=== PATIENT | female | born 1945 | race Caucasian/White ===

== ENCOUNTER 2017-11-18 18:20 | Emergency (ER) | payer MEDICARE, OTHER ==
[~2017-11-18] VITALS: Ht 165.1 cm; Wt 85.5 kg
[~2017-11-18 18:20] MED LIST: CEPH500C3 PO; HYDR12.56 PO; LORT5TAB PO; PROT40TA PO
[2017-11-18 18:42] VITALS: BP 145/69; PULSE 70; RESP 18; TEMP 98.8; O2SAT 98
[2017-11-18] MEDS ORDERED: ANAS1TAB PO (18:55)
[2017-11-18] MEDS ORDERED: ASPI-516 CHEW (18:55)
[2017-11-18] MEDS ORDERED: IMIT25TA PO (18:55)
[2017-11-18] MEDS ORDERED: CYAN100025 IM (18:55)
[2017-11-18] MEDS ORDERED: BETH10TA2 PO (18:55)
[2017-11-18] MEDS ORDERED: TETANUS/DIPHTHERIA TOXOID ADULT 0.5 ML VIAL IM ONE (19:00)
--- NOTE | 2017-11-18 19:21 | PD ---
HPI Chief Complaint: Fall Time Seen by Provider: 18:55 Travel History International Travel<30 days: No Contact w/Intl Traveler<30days: No Traveled to known affect area: No History of Present Illness HPI 71-year-old female presents emergency department evaluation of laceration over the left brow. Says that she tripped and fell hitting her head against the wall just prior to arrival. She denies loss of consciousness, blurred vision, headache. She denies neck or back pain. Says he has laceration over the left brow, bleeding controlled. She has no other complaints today. She does not take any blood thinners. She has a history of breast cancer and takes anastrozole. PFSH Past Medical History Hx Anticoagulant Therapy: Yes (ASA) Cancer: Yes High Cholesterol: Yes Chemotherapy: Yes (PAST) Diminished Hearing: No GERD: Yes Hypertension: Yes Tetanus Vaccination: > 5 Years Influenza Vaccination: Yes ?: Not Menopausal: Yes Past Surgical History Other Surgery: Yes (LEFT BREAST LUMPECTOMY) Social History Alcohol Use: No Tobacco Use: No (IN HIGH SCHOOL) Substance Use: No Allergies-Medications (Allergen,Severity, Reaction): Coded Allergies: No Known Allergies (Verified Adverse Reaction, Unknown, 11/18/17) Reported Meds & Prescriptions Reported Meds & Active Scripts Active Reported B-12 (Cyanocobalamin) 1,000 Mcg Subl 1 Ml IM WEEKLY Aspirin 81 Mg Chew 81 Mg CHEW DAILY Imitrex (Sumatriptan Succinate) 25 Mg Tab 25 Mg PO ONCE PRN If a satisfactory response has not been obtained at 2 hours, a second dose may be administered Bethanechol 10 Mg Tab 10 Mg PO Q8HR Anastrozole 1 Mg Tab 1 Mg PO DAILY Review of Systems Except as stated in HPI: all other systems reviewed are Neg Physical Exam Narrative GENERAL: Well-nourished, well-developed patient, in NAD SKIN: Focused skin assessment warm/dry. No rashes or lesions. HEAD: Normocephalic. Left brow-edema noted over the left brow with a small 3 mm laceration/ crush wound. EYES: No scleral icterus. No injection or drainage. PERRLA, EOMI THROAT: No pharyngeal injection, exudates, or tonsillar hypertrophy. Airway is patent. NECK: Supple, trachea midline. No JVD or lymphadenopathy. No meningismus. No midline tenderness CARDIOVASCULAR: Regular rate and rhythm without murmurs, gallops, or rubs. RESPIRATORY: Breath sounds equal bilaterally. No accessory muscle use. No wheezes, rales, or rhonchi MUSCULOSKELETAL: No cyanosis, or edema. BACK: No CVA tenderness. No rash. No point tenderness on palpation of the spine. Data Data Last Documented VS Vital Signs Date Time Temp Pulse Resp B/P (MAP) Pulse Ox O2 Delivery O2 Flow Rate FiO2 11/18/17 18:51 Room Air 11/18/17 18:42 98.8 70 18 145/69 (94) 98 Orders Orders Tetanus/Diphtheria Tox Adult (Tetanus/Di (11/18/17 19:00) Ct Brain W/O Iv Contrast(Rout) (11/18/17 ) Ct Cerv Spine W/O Contrast (11/18/17 ) Ct Facial Bones W/O Iv Cont (11/18/17 ) Wound Care (11/18/17 20:39) Ed Discharge Order (11/18/17 20:40) MDM Medical Decision Making Medical Screen Exam Complete: Yes Emergency Medical Condition: Yes Differential Diagnosis Left brow laceration, avulsion, abrasion Narrative Course 71-year-old female presents emergency department evaluation of laceration over the left brow. Says that she tripped and fell hitting her head against the wall just prior to arrival. She denies loss of consciousness, blurred vision, headache. She denies neck or back pain. Says he has laceration over the left brow, bleeding controlled. She has no other complaints today. She does not take any blood thinners. She has a history of breast cancer and takes anastrozole. Vital signs are stable. Present exam findings demonstrate a laceration above the left brow. No other focal deficits or findings today. I discussed obtaining images of the face, brain, neck based off of the injury to the forehead. She agreed. Laceration repair completed. Wound care. Last Impressions Maxillofacial CT 11/18/17 0000 Signed Impressions: Service Date/Time: Saturday, November 18, 2017 19:18 - CONCLUSION: 1. Left frontal soft tissue swelling. No fracture or radiopaque foreign body. Apolinar Pappas Jr., MD Head CT 11/18/17 0000 Signed Impressions: Service Date/Time: Saturday, November 18, 2017 19:18 - CONCLUSION: 1. See the CT of the facial bones reported separately. 2. Lucent lesions scattered throughout the calvaria worrisome for ostial metastases. An outpatient followup nuclear medicine bone scan would be beneficial to further evaluate. 3. No acute intracranial abnormality. Apolinar Pappas Jr., MD Cervical Spine CT 11/18/17 0000 Signed Impressions: Service Date/Time: Saturday, November 18, 2017 19:18 - CONCLUSION: 1. No lytic lesions observed. 2. No fracture or dislocation. 3. Multilevel degenerative changes as detailed above. 4. Carotid artery atherosclerotic calcifications. 5. Right thyroid nodule. Apolinar Pappas Jr., MD I discussed the findings of the CT with the patients. Advised that she should follow-up with a primary care physician and oncologist for further treatment and evaluation [place]. Advised her to follow-up regarding the thyroid nodule as well. She states understanding will comply. Advised to return for worsening or persistent symptoms. Procedures Procedure Narrative LACERATION LOCATION: Left brow LENGTH: 5 mm NUMBER OF STITCHES/FARIDA: 3 5-0 Prolene REPAIR: The area of the laceration was prepped with Betadine and sterilely draped. The laceration was infiltrated with 1% lidocaine without epinephrine. The wound was copiously irrigated and explored without evidence of foreign body, tendon injury or neurovascular injury. The wound was closed using 5-0 Prolene. This was a single layer repair. A sterile dressing was applied. The patient was advised to keep the dressing clean and dry. Patient tolerated the procedure well. Diagnosis Primary Impression: Forehead laceration Qualified Codes: S01.81XA - Laceration without foreign body of other part of head, initial encounter Additional Impression: Head contusion Qualified Codes: S00.12XA - Contusion of left eyelid and periocular area, initial encounter Referrals: Primary Care Physician Additional Instructions: Follow up with your primary care physician within 2-3 days. Keep area clean and dry for 24 hours. After 24 hours, you may bathe as normal but dry the area thoroughly. You may use [id number] triple antibiotic ointments for your injury daily. Change dressings daily. If bleeding starts, apply pressure and elevate the area. If you developed increased redness, swelling, or pain return to the emergency department as this could be a sign of infection. Suture removal in 5 days. Disposition: 01 DISCHARGE HOME Condition: Stable Keira Gloria November 18, 2017 19:21
--- NOTE | 2017-11-18 19:55 | RADRPT ---
EXAM DATE/TIME: 11/18/2017 19:18 [facility] COMPARISON: No previous studies available for comparison. INDICATIONS : Trauma. Fall. Laceration left frontal region. RADIATION DOSE: 51.14 CTDIvol (mGy) MEDICAL HISTORY : Hypertension. Carcinoma, breast. SURGICAL HISTORY : None. ENCOUNTER: Initial ACUITY: 1 day PAIN SCALE: 5/10 LOCATION: Left frontal TECHNIQUE: Multiple contiguous axial images were obtained of the head. Using automated exposure control and adj ustment of the mA and/or kV according to patient size, radiation dose was kept as low as reasonably a chievable to obtain optimal diagnostic quality images. DICOM format image data is available electro nically for review and comparison. FINDINGS: CEREBRUM: The ventricles are normal for age. No evidence of midline shift, mass lesion, hemorrhage or acute in farction. No extra-axial fluid collections are seen. POSTERIOR FOSSA: The cerebellum and brainstem are intact. The 4th ventricle is midline. The cerebellopontine angle i s unremarkable. EXTRACRANIAL: The visualized portion of the orbits is intact. SKULL: Multiple lucencies are seen throughout the calvarium bilaterally worrisome for ostial metastases. No fracture. See the CT of the facial bones reported separately. CONCLUSION: 1. See the CT of the facial bones reported separately. 2. Lucent lesions scattered throughout the calvaria worrisome for ostial metastases. An outpatient [facility] nuclear medicine bone scan would be beneficial to further evaluate. 3. No acute intracranial abnormality. Apolinar Pappas Jr., MD on November 18, 2017 at 19:51 Board Certified Radiologist. This report was verified electronically.
--- NOTE | 2017-11-18 19:59 | RADRPT ---
EXAM DATE/TIME: 11/18/2017 19:18 [facility] COMPARISON: No previous studies available for comparison. INDICATIONS : Trauma. Fall. Laceration left frontal region. RADIATION DOSE: 25.12 CTDIvol (mGy) MEDICAL HISTORY : Hypertension. Carcinoma, breast. SURGICAL HISTORY : None. ENCOUNTER: Initial ACUITY: 1 day PAIN SCALE: 5/10 LOCATION: neck TECHNIQUE: Volumetric scanning of the cervical spine was performed. Multiplanar reconstructions in the sagittal, coronal and oblique axial planes were performed. Using automated exposure control and adjustment o f the mA and/or kV according to patient size, radiation dose was kept as low as reasonably achievable to obtain optimal diagnostic quality images. DICOM format image data is available electronically f or review and comparison. FINDINGS: VERTEBRAE: Normal vertebral body height. ALIGNMENT: No evidence of subluxation. Calcified plaque throughout the carotid arteries bilaterally. Tiny low-density nodule involving the r ight lobe of the thyroid. C2-C3: There is a broad-based disc bulge without abutment of the cord or central canal stenosis. Neural fora ashley are patent. C3-C4: Broad-based disc bulge flattens the ventral portion of the cord. Bony uncovertebral hypertrophy contr ibutes to bilateral lateral recess and neural foraminal narrowing. C4-C5: Broad-based disc bulge without abutment of the cord or central canal stenosis. Bony uncovertebral hyp ertrophy generates bilateral lateral recess and neural foraminal narrowing. C5-C6: Broad-based disc osteophyte complex without abutment of the cord or central canal stenosis. Bony unco vertebral hypertrophy generates bilateral lateral recess and neural foraminal narrowing. C6-C7: Broad-based disc osteophyte complex without abutment of the cord or central canal stenosis. Bony unco vertebral hypertrophy with bilateral lateral recess and neural foraminal narrowing. C7-T1: The bony spinal canal is normal in size. No evidence of disc bulge or herniation. The neural forami na are bilaterally patent. CONCLUSION: 1. No lytic lesions observed. 2. No fracture or dislocation. 3. Multilevel degenerative changes as detailed above. 4. Carotid artery atherosclerotic calcifications. 5. Right thyroid nodule. Apolinar Pappas Jr., MD on November 18, 2017 at 19:54 Board Certified Radiologist. This report was verified electronically.
--- NOTE | 2017-11-18 20:00 | RADRPT ---
EXAM DATE/TIME: 11/18/2017 19:18 [facility] COMPARISON: No previous studies available for comparison. INDICATIONS : Trauma. Fall. Laceration left frontal region. RADIATION DOSE: 25.42 CTDIvol (mGy) MEDICAL HISTORY : Hypertension. Carcinoma, breast. SURGICAL HISTORY : None. ENCOUNTER: Initial ACUITY: 1 day PAIN SCORE: 5/10 LOCATION: Left frontal TECHNIQUE: Volumetric scanning of the facial bones was performed. Using automated exposure control and adjustme nt of the mA and/or kV according to patient size, radiation dose was kept as low as reasonably achiev able to obtain optimal diagnostic quality images. DICOM format image data is available electronicall y for review and comparison. FINDINGS: ORBITS: The orbital and infraorbital osseous structures are intact. The retroconal structures have a normal configuration. No radiopaque foreign bodies are seen. NASAL BONE: The nasal bone and maxillary spine are intact ZYGOMATIC ARCHES: Symmetric without evidence of fracture. SINUSES: The maxillary, ethmoid and frontal sinuses are intact. No air-fluid levels seen. NASAL CAVITY: The nasal septum is intact and midline. The lacrimal ducts are intact. SOFT TISSUES: No radiopaque foreign bodies seen. Left supraorbital soft tissue swelling. INTRACRANIAL: No intracranial air seen. CRIBIFORM PLATE: Grossly intact. CONCLUSION: 1. Left frontal soft tissue swelling. No fracture or radiopaque foreign body. Apolinar Pappas Jr., MD on November 18, 2017 at 19:57 Board Certified Radiologist. This report was verified electronically.
== END 2017-11-18 20:56 | disposition home or self-care (01) ==
LOC: PHEFT 18:20
DX: S01.81XA Laceration without foreign body of other part of head, initial encounter (principal); S00.12XA Contusion of left eyelid and periocular area, initial encounter; E04.1 Nontoxic single thyroid nodule; I10 Essential (primary) hypertension; W01.198A Fall on same level from slipping, tripping and stumbling with subsequent striking against other object, initial encounter; Z79.811 Long term (current) use of aromatase inhibitors; Z79.82 Long term (current) use of aspirin; Z23 Encounter for immunization; Z85.3 Personal history of malignant neoplasm of breast
CPT/HCPCS: 12011; 70450; 70486; 72125; 90471; 90714